=== PATIENT | female | born 1990 | race American Indian/Alaskan Native ===

== ENCOUNTER 2020-10-03 11:45 | Emergency (ER) | payer SELFPAY ==
--- NOTE | 2020-10-03 12:43 | Emergency Department Report ---
Stated Complaint: DEPRESSION Time Seen by Provider: 10/03/20 12:39 - HPI History of Present Illness: 29 y/o female pt presents to ED requesting mental health evaluation. States she has been "feeling stressed for awhile." Patient is visiting family in [place] from [place], [place]. States she flew MSE screening note: Focused history and physical exam performed. Due to findings the following was ordered: ED Disposition for MSE Is pt being admited?: No Does the pt Need Aspirin: No Additional Instructions: Follow up with Dr. Schreiber, primary care provider, within one week. Follow up with psychiatry within one week. See referral information below. Return to the emergency department for new or worsening symptoms. Referrals: JIGNESH SCHREIBER MD [Staff Physician] - 3-5 Days JOHAN ROLDAN MD [Referring] - 3-5 Days Time of Disposition: 12:43
[2020-10-03 12:45] VITALS: BP 145/89
--- NOTE | 2020-10-03 13:24 | Event Note ---
ED Screening Note Date of service: 10/03/20 Time: 13:24 ED Screening Note: 29-year-old female patient presents to the emergency department requesting a mental health evaluation. Patient states that she has been "feeling stressed" since losing her job a few months ago. Patient lives in [place], [place]. She states she is here visiting family and arrived last night. This morning, patient called 911 herself "to get a ride to the hospital so I could get checked out." Patient has no history of prior psychiatric illness. No alcohol use. No illicit substance use. Patient states she feels safe returning to her sister's home. Denies auditory and visual hallucinations. Denies suic idal ideation. Denies homicidal ideation. Denies thoughts of harm to self or others. Patient is not accompanied by family. retail loss prevention officer reportedly gave her a ride to the emergency department, although none of the hospital staff saw the police bring her. Law enforcement did not accompany her inside our facility. She did not arrive with any documentation from law enforcement. engine manager saw patient ambulate into the emergency department unaccompanied, and no additional history regarding this patient was provided to hospital staff at the time of medical screening exam. General: Awake, appropriately interactive, no acute distress. Neck: Supple. Full range of motion intact. Cardiovascular: Normal peripheral perfusion. Pulmonary: No respiratory distress. Patient is speaking normally without use of accessory muscles. Skin: No apparent rashes or lesions. Neurological: No facial asymmetry. Speech is clear. Follows commands. Patient is alert and oriented. Musculoskeletal: Moves all four extremities spontaneously with normal range of motion. Psych: Cooperative. Appropriate mood and affect. Speech is evenly metered. Thoughts are logically construed. Normal interaction and behavior noted throughout the duration of medical screening exam. Initially, patient was medically cleared to receive outpatient psychiatric treatment. Clinical presentation does not appear to be consistent with acute psychotic disorder or psychiatric emergency. She repeatedly denies suicidal and homicidal thoughts. She feels safe at home. Patient was provided with referral to local psychiatry practice and provided with strict return precautions. However, after patient was discharged, a family member called back to the emergency department with safety concerns. The relative spoke with the att ending emergency physician and stated that she was actually the one who called the police this morning (not the patient) because she was "acting crazy." This information was not communicated to the emergency department staff prior to patient's initial evaluation. Based on this information, patient will undergo mental health evaluation following medical clearance in our emergency department. Patient expressed understanding and is agreeable to plan of care. Final disposition pending mental health evaluation.
[2020-10-03 14:33] LABS: Hematocrit 40.3 % (30.3-42.9); Hemoglobin 13.8 gm/dl (10.1-14.3); Mean Corpuscular HGB Conc 34 % (30-34); Mean Corpuscular Volume 92 fl (79-97); Platelet Count 254 K/mm3 (140-440); Red Blood Count 4.39 M/mm3 (3.65-5.03); Red Cell Distribution Width 13.9 % (13.2-15.2)
[2020-10-03 14:55] LABS: BUN/Creatinine Ratio 7; Blood Urea Nitrogen 6 mg/dL (7-17); Calcium 9.5 mg/dL (8.4-10.2); Hemolysis Index 2
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
[2020-10-03 15:06] LABS: Anisocytosis 1+; Total Cells Counted 100
[2020-10-03 15:07] LABS: Platelet Estimate Consistent w Auto
[2020-10-04] MEDS ORDERED: ZIPRASIDONE MESYLATE 20 MG VIAL IM ONE (22:07)
== END 2020-10-03 15:23 | disposition left against medical advice (07) ==
LOC: ED 11:45
DX: D72.829 Elevated white blood cell count, unspecified (principal); F91.9 Conduct disorder, unspecified
CPT/HCPCS: 36415; 80048; 80320; 85007; 85025; G0480; J3486

== ENCOUNTER 2020-10-03 17:28 | Emergency (ER) | payer SELFPAY ==
--- NOTE | 2020-10-03 18:10 | Event Note ---
ED Screening Note Date of service: 10/03/20 Time: 18:01 ED Screening Note: Please see documentation from ED screening note on 10/03/20 as well as ED physician documentation for details. After patient signed out AGAINST MEDICAL ADVICE, she returned to the emergency department for re-evaluation. Patient states she "just stepped outside to get some fresh air" and is agreeable to talking with the psychiatric performing arts road manager. Case discussed with Dr. Patricia, attending emergency physician, who was aware of the patient's ED course up until this point. The psychiatric performing arts road manager reportedly determined patient would require further mental health evaluation after her assessment. Recommended 1013 psychiatric hold at this time. I have greeted and performed a focused rapid initial assessment of this patient. A comprehensive ED assessment and evaluation of the patient, analysis of all test results, and completion of the medical decision-making process will be conducted by additional ED providers. This initial assessment/diagnostic orders/clinical plan/treatment(s) is/are subject to change based on patients health status, clinical progression and re-assessment. Further treatment and workup at subsequent clinical provider's discretion. Patient/guardian urged not to elope from the ED as their condition may be serious if not clinically assessed and managed.
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
[2020-10-03 19:51] LABS: Basophils % (Auto) 0.2 % (0.0-1.8); Eosinophils % (Auto) 0.2 % (0.0-4.3); Hematocrit 40.6 % (30.3-42.9); Hemoglobin 14.1 gm/dl (10.1-14.3); Lymphocytes # (Auto) 3.2 K/mm3 (1.2-5.4); Lymphocytes % (Auto) 16.3 % (13.4-35.0); Mean Corpuscular HGB Conc 35 % (30-34); Mean Corpuscular Volume 92 fl (79-97); Monocytes # (Auto) 1.1 K/mm3 (0.0-0.8); Monocytes % (Auto) 5.7 % (0.0-7.3); Platelet Count 252 K/mm3 (140-440); Red Blood Count 4.43 M/mm3 (3.65-5.03); Red Cell Distribution Width 13.7 % (13.2-15.2)
--- NOTE | 2020-10-03 20:24 | XRay Report ---
CHEST 1 VIEW 10/03/2020 7:50 PM INDICATION / CLINICAL INFORMATION: Leukocytosis. COMPARISON: None available. FINDINGS: SUPPORT DEVICES: None. HEART / MEDIASTINUM: No significant abnormality. LUNGS / PLEURA: Clear lungs. No significant pleural effusion. No pneumothorax. ADDITIONAL FINDINGS: No significant additional findings. IMPRESSION: 1. No acute abnormality of the chest. Signer Name: Jrery Reina MD Signed: 10/03/2020 8:20 PM Workstation Name: [id number]
[2020-10-04 01:49] LABS: Bacteria,Urine 1+ /HPF (Negative); Bilirubin,Urine NEG (Negative); Blood,Urine NEG (Negative); Color,Urine Amber (Yellow); Mucus,Urine 3+ /HPF
[2020-10-04 01:50] LABS: Amphetamine Screen,Urine PRESUMPTIVE NEGATIVE; Benzodiazepines Screen,Urine PRESUMPTIVE NEGATIVE; Cannabinoid Screen,Urine PRESUMPTIVE POSITIVE; Cocaine Screen,Urine PRESUMPTIVE NEGATIVE; Methadone Screen,Urine PRESUMPTIVE NEGATIVE; Opiate Screen,Urine PRESUMPTIVE NEGATIVE
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
[2020-10-04 12:28] LABS: Basophils % (Auto) 0.3 % (0.0-1.8); Eosinophils # (Auto) 0.1 K/mm3 (0.0-0.4); Eosinophils % (Auto) 0.7 % (0.0-4.3); Hematocrit 38.4 % (30.3-42.9); Hemoglobin 13.3 gm/dl (10.1-14.3); Lymphocytes # (Auto) 2.5 K/mm3 (1.2-5.4); Lymphocytes % (Auto) 21.2 % (13.4-35.0); Mean Corpuscular HGB Conc 35 % (30-34); Mean Corpuscular Volume 92 fl (79-97); Monocytes % (Auto) 8.1 % (0.0-7.3); Platelet Count 223 K/mm3 (140-440); Red Cell Distribution Width 14.1 % (13.2-15.2)
[2020-10-04 12:42] LABS: Alanine Aminotransferase 9 units/L (7-56); Albumin 4.1 g/dL (3.9-5); BUN/Creatinine Ratio 8; Blood Urea Nitrogen 6 mg/dL (7-17); Calcium 8.8 mg/dL (8.4-10.2); Hemolysis Index 16
[2020-10-04] MEDS: QUEtiapine 25 MG TAB PO SCH ×2 (16:01→21:35)
[2020-10-04 20:20] LABS: Basophils # (Auto) 0.1 K/mm3 (0.0-0.1); Basophils % (Auto) 0.4 % (0.0-1.8); Eosinophils % (Auto) 0.3 % (0.0-4.3); Hematocrit 38.9 % (30.3-42.9); Hemoglobin 13.4 gm/dl (10.1-14.3); Lymphocytes # (Auto) 3.8 K/mm3 (1.2-5.4); Lymphocytes % (Auto) 27.3 % (13.4-35.0); Mean Corpuscular HGB Conc 35 % (30-34); Mean Corpuscular Volume 92 fl (79-97); Monocytes # (Auto) 1.4 K/mm3 (0.0-0.8); Monocytes % (Auto) 9.9 % (0.0-7.3); Platelet Count 239 K/mm3 (140-440); Red Blood Count 4.23 M/mm3 (3.65-5.03); Red Cell Distribution Width 14.1 % (13.2-15.2)
[2020-10-04] MEDS: traZODone 50 MG TAB PO SCH (21:37)
[2020-10-04] MEDS ORDERED: WATER FOR INJ Sterile (PF) 10 ML IM ONE (22:15)
[2020-10-04] MEDS ORDERED: ZIPRASIDONE MESYLATE 20 MG VIAL IM ONE (22:15)
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
[2020-10-05] MEDS ORDERED: ZIPRASIDONE MESYLATE 20 MG VIAL IM PRN ×2 (10:16→10:27)
[2020-10-05] MEDS: QUEtiapine 25 MG TAB PO SCH ×3 (11:28→22:42)
[2020-10-05] MEDS: DIVALPROEX DR 125 MG TAB PO SCH ×2 (11:44→22:42)
[2020-10-05 13:52] LABS: Hematocrit 38.5 % (30.3-42.9); Hemoglobin 13.1 gm/dl (10.1-14.3); Mean Corpuscular HGB Conc 34 % (30-34); Mean Corpuscular Volume 92 fl (79-97); Platelet Count 233 K/mm3 (140-440); Red Blood Count 4.19 M/mm3 (3.65-5.03)
[2020-10-05] MEDS ORDERED: IBUPROFEN 800 MG TAB PO ONE (17:35)
[2020-10-05] MEDS ORDERED: BACITRACIN/POLYMYXIN B OINT 28.35 GM TP ONE (17:36)
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
[2020-10-05] MEDS: traZODone 50 MG TAB PO SCH (22:42)
[2020-10-06 08:14] LABS: Hematocrit 37.6 % (30.3-42.9); Mean Corpuscular HGB Conc 35 % (30-34); Mean Corpuscular Volume 92 fl (79-97); Platelet Count 217 K/mm3 (140-440); Red Blood Count 4.09 M/mm3 (3.65-5.03); Red Cell Distribution Width 13.6 % (13.2-15.2)
[2020-10-06] MEDS: DIVALPROEX DR 125 MG TAB PO SCH (10:25)
[2020-10-06] MEDS: QUEtiapine 25 MG TAB PO SCH (10:25)
--- NOTE | 2020-10-06 10:40 | Progress Note ---
Subjective - Reason for Consult Consult date: 10/06/20 Reason for consult: psychosis - Chief Complaint Chief complaint: Per Nurse Note: pt came to desk to say that someone is paging her twice. tried to explain to pt that they are not paging her. pt insisting that she is being paged. Also states the patient refused her medications, stating she doesn't need them. The patient was seen today, she appears calm and cooperative, but gets upset very easily. She is hallucinating and delusional. The reports the patient things someone is paging her. The patient continues to not be forthcoming and tries to hide what is going on with her. She constantly denies any behaviors that was reported about her or why she's here. The patient tells me "they showed me in the computer that you put a letter in saying that you knew." The patient gets up set and states "I brought myself here. I need to go home. I have a kid." I asked the patient if I could call her family, she states "I don't know the numbers." REVIEW OF SYSTEMS Constitutional: Negative for weight loss ENT: Negative for stridor Respiratory: Negative for cough or hemoptysis All other systems reviewed and are negative MENTAL STATUS EXAMINATION General Appearance and Behavior: Age appropriate, good hygiene, not wearing appropriate clothes, cooperative, polite Cooperation: Participating, not forthcoming Psychomotor Behavior: Psychomotor normal Mood: fine Affect and affective range: smiling inappropriately Thought Process: illogical, responding to internal stimuli Speech: Normal tone and pace Thought Content Suicidal Ideation: Denies Homicidal Ideation: Denies Hallucinations: possibly auditory Delusions: Yes Impulse Control: Impaired Insight and Judgment: Impaired insight and judgment Memory: Limited Attention: Divided attention impaired Orientation: A/o x 3 Assessment and Plan (1) Schizophrenia Treatment Plan 1013 Increased Seroquel 120mg po BID Increased Depakote DR 250mg po BID Continue Trazodone 50mg po qhs Start Geodon 10mg IM q6h prn agitation Sitter: Defer to primary Medical: Per primary Disposition: Recommend acute psychiatric inpatient Will follow. Thank you for this consult. Case staffed with Dr. Byrne. Mental Status Exam - Vital signs Last Vital Signs Temp 98.2 F 10/06/20 05:10 Pulse 80 10/06/20 05:10 Resp 18 10/06/20 05:10 BP 131/75 10/06/20 05:10 Pulse Ox 100 10/06/20 05:10
[2020-10-06] MEDS ORDERED: QUEtiapine 100 MG TAB PO SCH (22:00)
[2020-10-06] MEDS ORDERED: DIVALPROEX DR 250 MG TAB PO SCH (22:00)
[2020-10-06] MEDS: traZODone 50 MG TAB PO SCH (22:02)
[2020-10-07 08:12] LABS: Hematocrit 39.3 % (30.3-42.9); Hemoglobin 13.3 gm/dl (10.1-14.3); Mean Corpuscular HGB Conc 34 % (30-34); Mean Corpuscular Volume 92 fl (79-97); Platelet Count 254 K/mm3 (140-440); Red Blood Count 4.28 M/mm3 (3.65-5.03); Red Cell Distribution Width 13.7 % (13.2-15.2)
[2020-10-07 10:11] VITALS: BP 116/94
--- NOTE | 2020-10-07 10:12 | Progress Note ---
Subjective - Reason for Consult Consult date: 10/07/20 Reason for consult: psychosis - Chief Complaint Chief complaint: Per Sitter: The patient is hypersexual and will not stay away from other patient's room The patient was seen today, she is lying down. She is argumentative, not forthcoming and manipulative. The patient denies SI/HI or hallucinations of any kind. She is asking me if she can leave and get her medical records. The process was then explained to the patient twice. She proceeds to argue and get upset about her not being able to get them and asks if I can show her what's in her charts because she doesn't believe what people are telling her. The patient also acts total surprised and denies any behaviors that was passed on or documented about her. She says "this is why I get upset because nobody will show me any documentation." She says "I haven't left my room since I been here. I've always been calm and cooperative." REVIEW OF SYSTEMS Constitutional: Negative for weight loss ENT: Negative for stridor Respiratory: Negative for cough or hemoptysis All other systems reviewed and are negative MENTAL STATUS EXAMINATION General Appearance and Behavior: Age appropriate, good hygiene, not wearing appropriate clothes, argumentative, not forthcoming Cooperation: Participating, not forthcoming Psychomotor Behavior: Psychomotor normal Mood: irritable Affect and affective range: smiling inappropriately Thought Process: illogical, responding to internal stimuli Speech: Normal tone and pace Thought Content Suicidal Ideation: Denies Homicidal Ideation: Denies Hallucinations: possibly auditory Delusions: Yes Impulse Control: Impaired Insight and Judgment: Impaired insight and judgment Memory: Limited Attention: Divided attention impaired Orientation: A/o x 3 Assessment and Plan (1) Schizophrenia Treatment Plan 1013 Continue Seroquel 120mg po BID Continue Depakote DR 250mg po BID Continue Trazodone 50mg po qhs Continue Geodon 10mg IM q6h prn agitation Sitter: Defer to primary Medical: Per primary Disposition: Recommend acute psychiatric inpatient Will follow. Thank you for this consult. Case staffed with Dr. Byrne. Mental Status Exam - Vital signs Last Vital Signs Temp 98.6 F 10/07/20 02:15 Pulse 79 10/07/20 02:15 Resp 16 10/07/20 02:15 BP 123/88 10/07/20 02:15 Pulse Ox 100 10/07/20 02:15
== END 2020-10-07 16:30 ==
LOC: ED 17:28 → EEVIPCON 17:28 → ED 10-07 16:30
DX: F23 Brief psychotic disorder (principal); Z20.822 Contact with and (suspected) exposure to COVID-19
CPT/HCPCS: 36415; 71045; 80053; 80307; 81001; 84703; 85025; 85027; 99285; J3486; U0003